=== PATIENT | female | born 1975 | race Caucasian/White ===

== ENCOUNTER → 2019-03-21 | Outpatient (CLI) | payer BC ==
[~2019-03-21] MED LIST: BUPR-147 PO; HYDR-653 PO; IBUP600T22 PO; IBUP800T37 PO; KET10 PO; MECL-81 PO; NAPR220C12 PO; OXYC-373 PO; PER PO
--- NOTE | 2019-03-22 14:53 | RADIOLOGY IMAGING REPORT ---
FACILITY: [facility] [place] PATIENT NAME: TESSIE LYLE : [id number] MR: [id number] V: [id number] EXAM DATE: [id number] ORDERING PHYSICIAN: MAYE LICONA TECHNOLOGIST: Brittany Trinidad PROCEDURE:BILATERAL DIAGNOSTIC DIGITAL MAMMOGRAM WITH CAD ASSISTED INTERPRETATION & 3D TOMOSYNTHESIS REASON FOR STUDY: Palpable lump Left breast FAMILY HISTORY OF BREAST CANCER: 2 Maternal Aunts Family history of ovarian cancer 2 Maternal Aunts BREAST PROCEDURES/TREATMENTS: None COMPARISON STUDIES: None MAMMOGRAM VIEWS OBTAINED: Bilateral 2D & 3D full field CC & MLO projections BREAST DENSITY: The breasts are extremely dense which lowers the sensitivity of mammography MAMMOGRAM FINDINGS: There are multiple circumscribed round & ovoid lobular masses seen throughout the upper outer quadrant of both breasts. No malignant appearing calcifications are identified. ULTRASOUND RIGHT BREAST REASON FOR STUDY: Further evaluation AREA SCANNED: 9, 10, 11, 12, 1, 2 & 3 o'clock positions ULTRASOUND FINDINGS: There are multiple cysts identified throughout the upper portion of the Right breast. The largest measures approximately 1.1cm in diameter. ULTRASOUND LEFT BREAST REASON FOR STUDY: Further evaluation AREA SCANNED: 9, 10, 11, 12, 1, 2 & 3 o'clock positions of the Left breast. ULTRASOUND FINDINGS: There are multiple cysts identified throughout the Left breast. The largest is in the location of patient's palpable findings which is in the 1 o'clock position & appears to contain echogenic material. This mass measures 2 x 2.4 x 1.4cm. This may represent a debris filled cyst. Depending upon the clinical presentation this may also represent a developing abscess. In the 12 o'clock position Left breast there is a well circumscribed ovoid hypoechoic nodule with faint acoustic enhancement measuring 5.8 x 7.3 x 4.9mm. This nodule is wider than tall. DIAGNOSTIC CATEGORY 3--PROBABLY BENIGN FINDING. RECOMMENDATIONS: SIX MONTH FOLLOW-UP ULTRASOUND: LEFT BREAST. IMPRESSION: BIRADS 3: Probably benign finding. There are multiple bilateral breast cysts identified as described above. Also noted is a well circumscribed hypoechoic nodule in the 12 o'clock position Left breast which may represent a fibroadenoma although 6 month follow up Left breast Ultrasound recommended. In the 1 o'clock position Left breast in patient's reported palpable abnormality there is a 2.4cm cyst containing internal echoes. This may represent a debris filled cyst. However, if the patient is symptomatic or if an abscess is of clinical concern an Ultrasound guided needle aspiration could be performed of this area. Dictated by: Dinora Ring M.D. on 03/22/2019 at 8:27 Transcribed by: CARMELITA on 03/22/2019 at 11:13 Approved by: Dinora Ring M.D. on 03/22/2019 at 14:50 [facility]
--- NOTE | 2019-03-22 14:54 | RADIOLOGY IMAGING REPORT ---
FACILITY: [facility] PATIENT NAME: TESSIE LYLE : [id number] MR: [id number] V: [id number] EXAM DATE: [id number] ORDERING PHYSICIAN: MAYE LICONA TECHNOLOGIST: Breanna Gregg RDMS(ABD,OBGYN,BR),RVT PROCEDURE:BILATERAL DIAGNOSTIC DIGITAL MAMMOGRAM WITH CAD ASSISTED INTERPRETATION & 3D TOMOSYNTHESIS REASON FOR STUDY: Palpable lump Left breast FAMILY HISTORY OF BREAST CANCER: 2 Maternal Aunts Family history of ovarian cancer 2 Maternal Aunts BREAST PROCEDURES/TREATMENTS: None COMPARISON STUDIES: None MAMMOGRAM VIEWS OBTAINED: Bilateral 2D & 3D full field CC & MLO projections BREAST DENSITY: The breasts are extremely dense which lowers the sensitivity of mammography MAMMOGRAM FINDINGS: There are multiple circumscribed round & ovoid lobular masses seen throughout the upper outer quadrant of both breasts. No malignant appearing calcifications are identified. ULTRASOUND RIGHT BREAST REASON FOR STUDY: Further evaluation AREA SCANNED: 9, 10, 11, 12, 1, 2 & 3 o'clock positions ULTRASOUND FINDINGS: There are multiple cysts identified throughout the upper portion of the Right breast. The largest measures approximately 1.1cm in diameter. ULTRASOUND LEFT BREAST REASON FOR STUDY: Further evaluation AREA SCANNED: 9, 10, 11, 12, 1, 2 & 3 o'clock positions of the Left breast. ULTRASOUND FINDINGS: There are multiple cysts identified throughout the Left breast. The largest is in the location of patient's palpable findings which is in the 1 o'clock position & appears to contain echogenic material. This mass measures 2 x 2.4 x 1.4cm. This may represent a debris filled cyst. Depending upon the clinical presentation this may also represent a developing abscess. In the 12 o'clock position Left breast there is a well circumscribed ovoid hypoechoic nodule with faint acoustic enhancement measuring 5.8 x 7.3 x 4.9mm. This nodule is wider than tall. DIAGNOSTIC CATEGORY 3--PROBABLY BENIGN FINDING. RECOMMENDATIONS: SIX MONTH FOLLOW-UP ULTRASOUND: LEFT BREAST. IMPRESSION: BIRADS 3: Probably benign finding. There are multiple bilateral breast cysts identified as described above. Also noted is a well circumscribed hypoechoic nodule in the 12 o'clock position Left breast which may represent a fibroadenoma although 6 month follow up Left breast Ultrasound recommended. In the 1 o'clock position Left breast in patient's reported palpable abnormality there is a 2.4cm cyst containing internal echoes. This may represent a debris filled cyst. However, if the patient is symptomatic or if an abscess is of clinical concern an Ultrasound guided needle aspiration could be performed of this area. Dictated by: Dinora Ring M.D. on 03/22/2019 at 8:27 [facility] Approved by: Dinora Ring M.D. on 03/22/2019 at 14:50
== END ==
LOC: MAMO 01:31
PROVIDERS: ATTEND Family Medicine
DX: R92.2 Inconclusive mammogram (principal); Z80.3 Family history of malignant neoplasm of breast
CPT/HCPCS: 77062; 77066